=== PATIENT | male | born 1955 | race Caucasian/White ===

== ENCOUNTER 2023-05-18 07:15 | Outpatient (CLI) | payer OTHER, SELFPAY ==
--- NOTE | 2023-05-18 09:08 | W.ANESCHARGE ---
Anesthesia Charges Start Date/Time Anesthesia Start Date: 05/18/23 Anesthesia Start Time: 08:39 Stop Date/Time Anesthesia Stop Date: 05/18/23 Anesthesia Stop Time: 09:05
--- NOTE | 2023-05-18 09:28 | W.ANESCHARGE ---
Anesthesia Charges Start Date/Time Anesthesia Start Date: 05/18/23 Anesthesia Start Time: 08:39 Stop Date/Time Anesthesia Stop Date: 05/18/23 Anesthesia Stop Time: 09:05
== END 2023-05-18 07:16 | disposition home or self-care (01) ==
PROVIDERS: PCP Family Medicine; Visit Provider Internal Medicine Gastroenterology
DX: Z12.11 Encounter for screening for malignant neoplasm of colon (principal); K63.5 Polyp of colon; K57.30 Diverticulosis of large intestine without perforation or abscess without bleeding; K62.1 Rectal polyp; Z86.010 Personal history of colon polyps
CPT/HCPCS: 00811; 45385; 88305; J2704